=== PATIENT | female | born 1995 | race Caucasian/White ===

== ENCOUNTER 2022-09-22 13:40 | Outpatient (CLI) | payer OTHER, SELFPAY ==
[2022-09-22 14:25] LABS: Beta HCG Quantitative 105.15 mIU/ML
== END 2022-09-22 13:41 | disposition home or self-care (01) ==
LOC: ANHLAB 13:42
PROVIDERS: PCP Family Medicine Sports Medicine; Visit Provider Obstetrics & Gynecology
DX: O20.0 Threatened abortion (principal); Z3A.00 Weeks of gestation of pregnancy not specified
CPT/HCPCS: 36415; 84702

== ENCOUNTER 2022-09-24 10:51 | Outpatient (CLI) | payer OTHER, SELFPAY ==
[2022-09-24 11:33] LABS: Beta HCG Quantitative 100.05 mIU/ML
== END 2022-09-24 10:52 | disposition home or self-care (01) ==
LOC: ANHLAB 10:55
PROVIDERS: PCP Family Medicine Sports Medicine; Visit Provider Obstetrics & Gynecology
DX: O20.0 Threatened abortion (principal); Z3A.00 Weeks of gestation of pregnancy not specified
CPT/HCPCS: 36415; 84702

== ENCOUNTER 2022-10-05 10:06 | Outpatient (CLI) | payer OTHER, SELFPAY ==
[2022-10-05 11:31] LABS: Beta HCG Quantitative 18.84 mIU/ML
== END 2022-10-05 10:07 | disposition home or self-care (01) ==
LOC: ANHLAB 10:10
PROVIDERS: PCP Family Medicine Sports Medicine; Visit Provider Obstetrics & Gynecology
DX: O20.0 Threatened abortion (principal); Z3A.00 Weeks of gestation of pregnancy not specified
CPT/HCPCS: 36415; 84702

== ENCOUNTER 2022-10-12 10:45 | Outpatient (CLI) | payer OTHER, SELFPAY ==
[2022-10-12 11:27] LABS: Beta HCG Quantitative < 2.39 mIU/ML
== END 2022-10-12 10:46 | disposition home or self-care (01) ==
LOC: ANHLAB 10:46
PROVIDERS: PCP Family Medicine Sports Medicine; Visit Provider Obstetrics & Gynecology
DX: O20.0 Threatened abortion (principal); Z3A.00 Weeks of gestation of pregnancy not specified
CPT/HCPCS: 36415; 84702